=== PATIENT | female | born 1985 | race African-American/Black ===

== ENCOUNTER 2017-03-15 19:31 | Emergency (ER) | payer BC, OTHER ==
[2017-03-15 19:51] VITALS: BP 121/75; PULSE 95; TEMP 98; BMI 29.2
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
[2017-03-15 20:31] LABS: BASOPHIL 0.7 % (0-2.0); EOSINOPHIL 0.3 % (0-4.5); MCHC 33.2 g/dl (32.0-36.0); MEAN CELL VOLUME 90.3 fl (80-96); MEAN PLT VOLUME 8.3 fl (7.5-11.1); NEUTROPHILS 51.9 % (42.8-82.8); PLATELET COUNT 268 K/MM3 (134-434); RDW 13.5 % (11.6-15.6); WHITE BLOOD COUNT 7.2 K/mm3 (4.0-10.0)
[2017-03-15 21:04] LABS: ALBUMIN 3.9 g/dl (3.4-5.0); ANION GAP 10 (8-16); BILIRUBIN,TOTAL 0.4 mg/dL (0.2-1.0); CALCIUM 8.4 mg/dL (8.5-10.1); CO2 24 mmol/L (21-32); CREATININE 1.2 mg/dL (0.55-1.02); GLUCOSE,RANDOM 81 mg/dL (74-106); SGPT/ALT 19 U/L (12-78)
[2017-03-15 21:05] LABS: ALK PHOS 51 U/L (45-117)
[2017-03-15 21:06] LABS: SGOT/AST 11 U/L (15-37)
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
[2017-03-15] MEDS ORDERED: IBUPROFEN 600 MG TABLET (FP) PO ONE ×2 (22:49→23:05)
== END 2017-03-15 23:11 | disposition home or self-care (01) ==
LOC: JER 19:31
DX: G44.209 Tension-type headache, unspecified, not intractable (principal); V49.49XA Driver injured in collision with other motor vehicles in traffic accident, initial encounter; Y92.488 Other paved roadways as the place of occurrence of the external cause; Y93.89 Activity, other specified; Y99.8 Other external cause status
CPT/HCPCS: 36415; 80053; 83605; 84703; 85025; 87040; 99281-25

== ENCOUNTER 2021-10-11 00:38 | Emergency (ER) | payer OTHER ==
[2021-10-11 01:19] VITALS: PULSE 75; BMI 29.2
[2021-10-11] MEDS ORDERED: ACETAMINOPHEN 1000 MG/100 ML BAG IVPB ONE (02:40)
[2021-10-11] MEDS ORDERED: ACETAMINOPHEN INJECTION 100 ML IVPB ONE (02:52)
[2021-10-11 03:18] LABS: BASO % 0.5 % (0-2.0); HEMATOCRIT 37.2 % (32.4-45.2); HEMOGLOBIN 12.3 GM/dL (10.7-15.3); LYMPH % 30.2 % (8-40); MCH 29.4 pg (25.7-33.7); MCHC 33.1 g/dl (32.0-36.0); MEAN CELL VOLUME 88.7 fl (80-96); MEAN PLT VOLUME 7.8 fl (7.5-11.1); NEUT % 64.3 % (42.8-82.8); PLATELET COUNT 258 10^3/uL (134-434); RDW 14.7 % (11.6-15.6); WHITE BLOOD COUNT 7.1 K/mm3 (4.0-10.0)
[2021-10-11 03:23] LABS: EPI CELLS >36 /uL (0-25.1); HYALINE CASTS 6 /uL (0-3.1); PH,URINE 6.5 (5.0-8.0); URINE APPEARANCE CLOUDY; URINE BACTERIA 2674 /uL (0-1359); URINE BILIRUBIN NEGATIVE (NEGATIVE); URINE COLOR YELLOW; URINE GLUCOSE (UA) NEGATIVE (NEGATIVE); URINE KETONE 2+ (NEGATIVE); URINE LEUK ESTERASE 1+ (NEGATIVE); URINE NITRITE NEGATIVE (NEGATIVE); URINE PROTEIN TRACE (NEGATIVE); URINE RBC 15 /uL (0-23.9); URINE WBC 131 /uL (0-25.8)
[2021-10-11 03:35] LABS: CALCIUM 8.9 mg/dL (8.5-10.1)
[2021-10-11 03:36] LABS: ALBUMIN 3.8 g/dl (3.4-5.0); BLOOD UREA NITROGEN 10.4 mg/dL (7-18)
[2021-10-11 03:39] LABS: CREATININE 0.7 mg/dL (0.55-1.3)
[2021-10-11] MEDS ORDERED: SULFAMETHOXAZOLE/TRIMETHOPRIM 800MG/160MG D.S. TABLET PO ONE (03:40)
[2021-10-11 03:41] LABS: BILIRUBIN,TOTAL 0.5 mg/dL (0.2-1); TOT PROT 7.4 g/dl (6.4-8.2)
[2021-10-11] MEDS ORDERED: SULFAMETHOXAZOLE/TRIMETHOPRIM 800MG/160MG D.S. TABLET ONE (04:15)
[2021-10-11 06:05] VITALS: BP 129/71; TEMP 98.1
== END 2021-10-11 06:10 | disposition home or self-care (01) ==
LOC: JER 00:38
PROC: 3E0333Z Introduction of Anti-inflammatory into Peripheral Vein, Percutaneous Approach (ICD-10-PCS; principal; 2021-10-11)
DX: N30.00 Acute cystitis without hematuria (principal)
CPT/HCPCS: 74177-TC; 80053; 81003; 83690; 84703; 85025; 87086; 99285-25